=== PATIENT | male | born 2000 | race Two or more races ===

== ENCOUNTER 2019-01-02 07:07 | Emergency (ER) | payer SELFPAY ==
[~2019-01-02] VITALS: Ht 165.1 cm; Wt 68.0 kg
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
[2019-01-02 08:14] VITALS: BP 93/56
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
[2019-01-02] MEDS ORDERED: IBUPROFEN600 MG ORAL (08:53)
--- NOTE | 2019-01-02 09:05 | NUR ---
ER DISCHARGE NOTE: Patient is cleared to be discharged per ERMD, pt is aox4, on room air, with stable vital signs. pt was given dc and prescription instructions, pt was able to verbalize understanding, pt id band removed . pt is able to ambulate with steady gait. pt took all belongings.
[2019-01-02 09:22] VITALS: BP 101/61
--- NOTE | 2019-01-02 09:26 | NUR ---
ER DISCHARGE NOTE:pt. was provided with list of community resourses and he will call his parents Patient is cleared to be discharged per ERMD, pt is aox4, on room air, with stable vital signs. pt was given dc and prescription instructions, pt was able to verbalize understanding, pt is able to ambulate with steady gait. pt took all belongings.
--- NOTE | 2019-01-03 12:42 | Cardiology Report ---
APPROVED REPORT EKG Measurement Heart [id number] elevation, consider lateral injury or acute infarct - or artifact. Abnormal ECG
== END 2019-01-02 09:27 | disposition home or self-care (01) ==
LOC: EMR 08:22
DX: S09.90XA Unspecified injury of head, initial encounter (principal); Y04.2XXA Assault by strike against or bumped into by another person, initial encounter
CPT/HCPCS: 70450; 93005; 99284